=== PATIENT | female | born 1990 | race Caucasian/White ===

== ENCOUNTER 2017-11-16 20:25 | Inpatient (IN) | payer BC ==
[2017-11-16 20:28] VITALS: BMI 30.8
[2017-11-16] MEDS: Lactated Ringer's 1,000 ML IV ONE (20:50)
--- NOTE | 2017-11-16 21:01 | OBHP ---
Datetime: 11/16/2017 20:57 IP Chief Complaint Other: Pt is here for IOL as per the PMD. IP Admit Plan Other: To admit to Dr Claudio for IOL Admit Comment, IP Provider: 27 y/o at 39.5 wks for IOL by the PMD. NST- Reactive. Pt may be admitted to L_D dr Claudio's service for IOL as per dr's request FHR - Baseline A Provider: 130 EGA AdmitDate IP: 39.5 IP Chief Complaint: Other NICHD Variability Prov Fetus A: Moderate 6-25bpm NICHD Accel Fetus A IP Provider: 15X15 FHR Category Provider Fetus A: Category I NICHD Decel Fetus A IP Provider: None
[2017-11-16 22:31] LABS: BASO % 0.2 % (0.0-2.0); EOS # 0.1 K/uL (0.0-0.7); EOS % 1.2 % (0.0-4.0); HEMOGLOBIN 12.5 g/dL (11.0-16.0); LYMPH # 2.1 K/uL (1.0-4.3); LYMPH % 19.3 % (20.0-40.0); MEAN CELL VOLUME 85.9 fL (81.0-99.0); MEAN CORPUSCULAR HEMOGLOBIN 29.3 pg (27.0-31.0); MEAN CORPUSCULAR HGB CONC 34.1 g/dL (33.0-37.0); MONO # 1.1 K/uL (0.0-0.8); MONO % 10.6 % (0.0-10.0); NEUT # 7.4 K/uL (1.8-7.0); NEUT % 68.7 % (50.0-75.0); NRBC % 0.2 % (0.0-2.0); RBC 4.28 Mil/uL (3.80-5.20); WHITE BLOOD COUNT 10.8 K/uL (4.8-10.8)
[2017-11-16 22:35] LABS: SQUAMOUS EPITHIAL < 1 /hpf (0-5); URINE BACTERIA OCC (<OCC); URINE BILIRUBIN NEGATIVE (NEGATIVE); URINE BLOOD NEGATIVE (NEGATIVE); URINE CLARITY Hazy (Clear); URINE COLOR Yellow (YELLOW); URINE GLUCOSE (UA) 1+ mg/dL (Normal); URINE LEUKOCYTE ESTERASE NEG Leu/uL (Negative); URINE PROTEIN NEGATIVE (NEGATIVE); URINE UROBILINOGEN NORMAL mg/dL (0.2-1.0)
[2017-11-16 22:46] LABS: ALB/GLOB RATIO 1.3 (1.0-2.1); ALBUMIN 3.8 g/dL (3.5-5.0); ALT/SGPT 22 U/L (9-52); AST/SGOT 27 U/L (14-36); BLOOD UREA NITROGEN 7 mg/dL (7-17); CALCIUM 9.4 mg/dl (8.6-10.4); GFR AFRICAN-AMERICAN > 60; GFR NON-AFRICAN AMERICAN > 60
[2017-11-17] MEDS ORDERED: Lactated Ringer's 1,000 ML IV SCH (00:30)
[2017-11-17] MEDS: Lactated Ringer's 1,000 ML IV ONE (00:30)
[2017-11-17] MEDS ORDERED: Nalbuphine HCL 10 mg/ml Ampule IVP PRN (06:10)
[2017-11-17] MEDS ORDERED: Nalbuphine HCL 10 mg/ml Ampule ONE (06:25)
[2017-11-17] MEDS ORDERED: Oxytocin 20 units in LR 2,000 ML IV ONE (08:46)
[2017-11-17] MEDS ORDERED: Sodium Citrate/Citric Acid 15 ml Sol ONE (08:46)
--- NOTE | 2017-11-17 09:36 | OBPN ---
Datetime: 11/17/2017 09:31 IP Progress Note Comment: Vaginal exam was performed as per PMD request due to tachysystoly. Findings were discussed with the PMD by the nurse. Dilatation, Provider: 0 Effacement, Provider: 70 Station, Provider: -3 Datetime: 11/16/2017 20:57 FHR - Baseline A Provider: 130 NICHD Accel Fetus A IP Provider: 15X15 FHR Category Provider Fetus A: Category I NICHD Variability Prov Fetus A: Moderate 6-25bpm NICHD Decel Fetus A IP Provider: None
[2017-11-17] MEDS ORDERED: Clindamycin 600mg/50ml NS 600 MG/50 ML BAG IVPB ONE ×2 (10:39→10:44)
[2017-11-17] MEDS ORDERED: Morphine 1 mg/ml preservative-free Inj(Duramorph) ONE (10:52)
[2017-11-17] MEDS ORDERED: Phenylephrine 10 mg/ml Inj ONE (11:51)
[2017-11-17] MEDS ORDERED: Lactated Ringer's 1,000 ML IV ONE (12:27)
[2017-11-17] MEDS ORDERED: Sodium Citrate/Citric Acid 15 ml Sol PO ONE (12:27)
--- NOTE | 2017-11-17 15:48 | US ---
PROCEDURE: Third trimester ultrasound HISTORY: Estimated weight. COMPARISON: None available. TECHNIQUE: Standard protocol for this study/examination. FINDINGS: Cephalic presentation. Fundal and posterior Placenta. No evidence of abruption or previa Gestational age derived from LMP 39 weeks 5 days. MOJGAN 11/18/2017. Gestational age derived from the following biometric parameters 39 weeks 6 days. MOJGAN 11/17/2017 Biparietal diameter 9.73 cm Head circumference 34.33 cm Abdominal circumference 35.90 cm Femur length 7.82 cm Estimated weight 3903 g Calculated cardiac rate 154 beats per min. Closed cervix measuring 2.54 cm IMPRESSION: Thirty-nine weeks 6 days live intrauterine gestation. Estimated weight 3.9 kg. Concordant results (preliminary interpretation) provided by [facility]. Procedure Completed: 22:20November 16, 2017. Preliminary ([facility]) Report: Dictated and Authenticated: 22:56 Final Interpretation: 15:47 November 17, 2017.
[2017-11-18] MEDS: Oxycodone/Acetaminophen 5/325 mg Tab PO PRN ×3 (06:10→17:10)
[2017-11-18 06:54] LABS: HEMOGLOBIN 11.4 g/dL (11.0-16.0); MEAN CELL VOLUME 86.2 fL (81.0-99.0); MEAN CORPUSCULAR HEMOGLOBIN 29.9 pg (27.0-31.0); MEAN CORPUSCULAR HGB CONC 34.7 g/dL (33.0-37.0); MEAN PLATELET VOLUME 8.5 fL (7.2-11.7); RBC 3.81 Mil/uL (3.80-5.20); RED CELL DISTRIBUTION WIDTH 14.5 % (11.5-14.5); WHITE BLOOD COUNT 12.8 K/uL (4.8-10.8)
[2017-11-18] MEDS: Prenatal Multivit/Folic Acid/Iron Tab PO SCH (09:58)
[2017-11-18] MEDS ORDERED: Oxytocin 20 units in LR 0 ML IV ONE (13:52)
[2017-11-18] MEDS ORDERED: Lidocaine 2% MPF (5 ml) Inj ONE (14:03)
[2017-11-18] MEDS ORDERED: Magnesium Hydroxide Susp 30 ml UD PO PRN (21:15)
[2017-11-19] MEDS: Oxycodone/Acetaminophen 5/325 mg Tab PO PRN ×5 (00:17→22:03)
[2017-11-19] MEDS: Prenatal Multivit/Folic Acid/Iron Tab PO SCH (09:56)
[2017-11-19] MEDS: Simethicone 80 mg Chewtab PO SCH ×4 (09:56→22:00)
[2017-11-19] MEDS ORDERED: Simethicone 80 mg Chewtab PO SCH (10:00)
--- NOTE | 2017-11-19 15:05 | OBDS ---
DELIVERY PERSONNEL Delivery Doctor: Ashley Bonds MD Scrub Nurse: Bindu Hong Certified Pathology Assistant: Ricardo Mcintosh RN Anesthesiologist: smith MATERNAL INFORMATION Delivery Anesthesia: Spinal Estimated Blood Loss (ml): 500 Placenta Cultured: No Maternal Complications: Other Other Maternal Complications: failed IOL Provider Comments: nuchal cord X 1 LABOR SUMMARY EDC: 11/18/2017 00:00 No. Babies in Womb: 1 Attempted: No Labor Anesthesia: IV Sedation LABOR INFORMATION Reason for Induction: Other Reason for Induction Other: IUP 39.6 is reason for IOL as per Dr. Bonds Onset of Labor: 11/17/2017 06:00 Cervical Ripening Agents: Cervidil Oxytocin: N/A Group B Beta Strep: Negative (Annotations: 09/23/2017) Steroids Given: None Reason Steroids Not Administered: Not Applicable MEMBRANES Membranes Rupture Method: Artificial Rupture of Membranes: 11/17/2017 11:21 Length of Rupture (hrs): 0.02 Amniotic Fluid Color: Clear Amniotic Fluid Amount: Moderate Amniotic Fluid Odor: Normal STAGES OF LABOR Stage 3 hrs: 0 Stage 3 min: 1 Total Time in Labor hrs: 5 Total Time in Labor min: 23 CSECTION DELIVERY Primary Indication: Failed Induction CSection Urgency: Elective CSection Incidence: Primary Labor: Labor Elective: Elective BABY A INFORMATION Infant Delivery Date/Time: 11/17/2017 11:22 Method of Delivery: Born in Route : No : N/A Forceps: N/A Vacuum Extraction: N/A SHOULDER DYSTOCIA BABY A Infant Delivery Date/Time: 11/17/2017 11:22 PRESENTATION/POSITION BABY A Presentation: Cephalic Cephalic Presentation: Vertex Vertex Position: Left Occipital Anterior Breech Presentation: N/A PLACENTA INFORMATION BABY A Placenta Delivery Time : 11/17/2017 11:23 Placenta Method of Delivery: Manual Removal Placenta Status: Delivered SCORES BABY A Heart Rate 1 min: >100 bpm Resp Effort 1 min: Good Cry Reflex Irritability 1 min: Cough or Sneeze or Pulls Away Muscle Tone 1 min: Active Motion Color 1 min: Body [place], Extremities Blue Resuscitation Effort 1 min: N/A SCORE 1 MIN: 9 Heart Rate 5 min: >100 bpm Resp Effort 5 min: Good Cry Reflex Irritability 5 min: Cough or Sneeze or Pulls Away Muscle Tone 5 min: Active Motion Color 5 min: Body [place], Extremities Blue Resuscitation Effort 5 min: N/A SCORE 5 MIN: 9 INFANT INFORMATION BABY A Gestational Age at Delivery: 39.6 Gestational Status: Term Outcome : Liveborn Condition : Stable Infant Sex: Male IDENTIFICATION/MEDS BABY A ID Band Number: [id number] ID Band Location: Left Leg; Left Arm Sensor Applied: Yes Sensor Number: [id number] Sensor Location : Cord Clamp WEIGHT/LENGTH BABY A Infant Birthweight (gms): 4025 Weight (lb): 8 Weight (oz): 14 Infant Length Inches: 20.50 Infant Length cms: 52.1 CORD INFORMATION BABY A No. Cord Vessels: 3 Nuchal Cord : Around Neck x1, Loose Cord Blood Taken: Yes Infant Suction: Mouth
--- NOTE | 2017-11-19 15:06 | OBDS ---
DELIVERY PERSONNEL Delivery Doctor: Ashley Bonds MD Scrub Nurse: Bindu Hong Heating Operators Engineer: Ricardo Mcintosh RN Anesthesiologist: smith MATERNAL INFORMATION Delivery Anesthesia: Spinal Estimated Blood Loss (ml): 500 Placenta Cultured: No Maternal Complications: Other Other Maternal Complications: failed IOL Provider Comments: nuchal cord X 1 LABOR SUMMARY EDC: 11/18/2017 00:00 No. Babies in Womb: 1 Attempted: No Labor Anesthesia: IV Sedation LABOR INFORMATION Reason for Induction: Other Reason for Induction Other: IUP 39.6 is reason for IOL as per Dr. Bonds Onset of Labor: 11/17/2017 06:00 Cervical Ripening Agents: Cervidil Cervical Ripening Agents: CERVIDIL IN PLACE Cervical Ripening Agents: CERVIDIL IN PLACE Cervical Ripening Agents: CERVIDIL IN PLACE Cervical Ripening Agents: CERVIDIL IN PLACE Cervical Ripening Agents: CERVIDIL IN PLACE Cervical Ripening Agents: CERVIDIL IN PLACE Cervical Ripening Agents: CERVIDIL IN PLACE Cervical Ripening Agents: CERVIDIL IN PLACE Cervical Ripening Agents: CERVIDIL IN PLACE Cervical Ripening Agents: CERVIDIL IN PLACE Cervical Ripening Agents: CERVIDIL IN PLACE Cervical Ripening Agents: CERVIDIL IN PLACE Cervical Ripening Agents: Cervidil (Annotations: INSERTED BY DR ISLAS) Oxytocin: N/A Group B Beta Strep: Negative (Annotations: 09/23/2017) Steroids Given: None Reason Steroids Not Administered: Not Applicable MEMBRANES Membranes Rupture Method: Artificial Rupture of Membranes: 11/17/2017 11:21 Length of Rupture (hrs): 0.02 Amniotic Fluid Color: Clear Amniotic Fluid Amount: Moderate Amniotic Fluid Odor: Normal STAGES OF LABOR Stage 3 hrs: 0 Stage 3 min: 1 Total Time in Labor hrs: 5 Total Time in Labor min: 23 CSECTION DELIVERY Primary Indication: Failed Induction CSection Urgency: Elective CSection Incidence: Primary Labor: Labor Elective: Elective BABY A INFORMATION Delivery Date/Time: 11/17/2017 11:22 Method of Delivery: Born in Route : No : N/A Forceps: N/A Vacuum Extraction: N/A SHOULDER DYSTOCIA BABY A Delivery Date/Time: 11/17/2017 11:22 PRESENTATION/POSITION BABY A Presentation: Cephalic Cephalic Presentation: Vertex Vertex Position: Left Occipital Anterior Breech Presentation: N/A PLACENTA INFORMATION BABY A Placenta Delivery Time : 11/17/2017 11:23 Placenta Method of Delivery: Manual Removal Placenta Status: Delivered SCORES BABY A Heart Rate 1 min: >100 bpm Resp Effort 1 min: Good Cry Reflex Irritability 1 min: Cough or Sneeze or Pulls Away Muscle Tone 1 min: Active Motion Color 1 min: Body [place], Extremities Blue Resuscitation Effort 1 min: N/A SCORE 1 MIN: 9 Heart Rate 5 min: >100 bpm Resp Effort 5 min: Good Cry Reflex Irritability 5 min: Cough or Sneeze or Pulls Away Muscle Tone 5 min: Active Motion Color 5 min: Body [place], Extremities Blue Resuscitation Effort 5 min: N/A SCORE 5 MIN: 9 INFORMATION BABY A Gestational Age at Delivery: 39.6 Gestational Status: Term Infant Outcome : Liveborn Infant Condition : Stable Infant Sex: Male IDENTIFICATION/MEDS BABY A ID Band Number: [id number] ID Band Location: Left Leg; Left Arm Sensor Applied: Yes Sensor Number: [id number] Sensor Location : Cord Clamp WEIGHT/LENGTH BABY A Birthweight (gms): 4025 Weight (lb): 8 Infant Weight (oz): 14 Infant Length Inches: 20.50 Length cms: 52.1 CORD INFORMATION BABY A No. Cord Vessels: 3 Nuchal Cord : Around Neck x1, Loose Cord Blood Taken: Yes Infant Suction: Mouth
--- NOTE | 2017-11-19 15:10 | OBPPN ---
Datetime: 11/19/2017 15:09 PP Pain Prov: Within normal limits PP Breasts Prov: Normal PP Heart Prov: Normal PP Lungs Prov: Normal PP Abdomen/Uterus Prov: Normal PP Lochia Prov: Normal PP Vulva/Perineum Prov: Normal PP CVA Tenderness Prov: Normal PP Extremities Prov: Normal PP C/S Incision Prov: Normal PP Progress Prov: Normal PP Impression Prov: Normal progression PP Plan Prov: Continue present management IP PP Procedures: None Vital Signs Provider PP: Within Normal Limits Datetime: 11/19/2017 15:06 PP Progress Note Prov: POD #1 No C/O VS Stable Abdomen : Soft Wound Clean P: Advance Diet
--- NOTE | 2017-11-19 15:13 | OBPPN ---
Datetime: 11/19/2017 15:09 PP Progress Note Prov: POD #2 No C/O VS Stable Abdomen Soft Wound Clean P: Home in A if stable
--- NOTE | 2017-11-19 15:15 | OBDCSUM ---
Datetime: 11/19/2017 15:11 Discharged to, Provider: Home Follow up at, Provider: Dr. Bonds Disch Instr Activity: Normal activity Disch Instr Diet: Regular Discharge Instructions, Provider: Routine instructions given Discharge Diagnosis, Provider: Term Delivered Discharge Time: 11/20/2017 10:00 Follow up in weeks, Provider: 4 weeks Disch Referrals: None Contraception discussed, Prov: Yes Disch Activity Restrictions: No exercising; No lifting; No sexual activity; Nothing in vagina - Inte rcourse, tampons, douche Discharge Comment, Provider: Home in AM, 7-18, if stable Contraception after Delivery: Not Planning to Use
[2017-11-20] MEDS: Oxycodone/Acetaminophen 5/325 mg Tab PO PRN (07:07)
[2017-11-20 08:25] VITALS: BP 115/70; PULSE 92; RESP 18; TEMP 98.9; O2SAT 97
[2017-11-20] MEDS: Prenatal Multivit/Folic Acid/Iron Tab PO SCH (09:44)
[2017-11-20] MEDS: Simethicone 80 mg Chewtab PO SCH (09:45)
== END 2017-11-20 12:20 | disposition home or self-care (01) | DRG 766 ==
LOC: C.EROB 20:25 → C.4D 21:30 → C.4M 11-17 14:31
PROVIDERS: ADMIT Obstetrics & Gynecology Gynecology; ATTEND Obstetrics & Gynecology Gynecology
PROC: 10D00Z1 Extraction of Products of Conception, Low, Open Approach (ICD-10-PCS; principal; 2017-11-17)
PROC: 10907ZC Drainage of Amniotic Fluid, Therapeutic from Products of Conception, Via Natural or Artificial Opening (ICD-10-PCS; 2017-11-17)
PROC: 3E0P7VZ Introduction of Hormone into Female Reproductive, Via Natural or Artificial Opening (ICD-10-PCS; 2017-11-17)
DX: O76 Abnormality in fetal heart rate and rhythm complicating labor and delivery (principal); O69.81X0 Labor and delivery complicated by cord around neck, without compression, not applicable or unspecified; O61.9 Failed induction of labor, unspecified; Z3A.39 39 weeks gestation of pregnancy; Z37.0 Single live birth